=== PATIENT | female | born 1990 | race Caucasian/White ===

== ENCOUNTER 2022-09-17 22:24 | Emergency (ER) | payer OTHER ==
[~2022-09-17] VITALS: Ht 170.2 cm; Wt 65.8 kg
[2022-09-17 22:45] VITALS: BP 133/94
--- NOTE | 2022-09-17 22:45 | NUR ---
c/o "allergic rxn" on bactrim x mon for uti, notes white patches on mouth, a/o X 4. Afebrile. Placed comfortably on bed.
[2022-09-17] MEDS ORDERED: CEPH500T PO (22:56)
[2022-09-17] MEDS ORDERED: PRED50TA PO (22:56)
[2022-09-17] MEDS ORDERED: predniSONE 50 MG TABLET PO ONE (23:00)
[2022-09-17] MEDS ORDERED: predniSONE 20 MG TABLET ONE (23:12)
--- NOTE | 2022-09-17 23:16 | NUR ---
Patient discharged to home in stable condition. Ambulatory. Written and verbal after care instructions given. Patient verbalizes understanding of instruction.
== END 2022-09-17 23:18 | disposition home or self-care (01) ==
LOC: ER 22:31
DX: K13.0 Diseases of lips (principal); T36.8X5A Adverse effect of other systemic antibiotics, initial encounter; Y92.89 Other specified places as the place of occurrence of the external cause